=== PATIENT | female | born 1945 | race Caucasian/White ===

== ENCOUNTER 2016-10-12 14:01 | Emergency (ER) | payer OTHER ==
[2016-10-12 14:58] LABS: RED BLOOD COUNT 4.84 M/UL (4.00-5.10); WHITE BLOOD COUNT 4.2 K/UL (4.5-11.0)
[2016-10-12 15:21] LABS: BUN/CREATININE RATIO 19 (0-10)
== END 2016-10-12 17:30 | disposition home or self-care (01) ==
LOC: ER1 14:01
PROVIDERS: Emergency Medicine
DX: R55 Syncope and collapse (principal); R07.89 Other chest pain; R42 Dizziness and giddiness; R53.1 Weakness
CPT/HCPCS: 36415; 70450; 71010; 80053; 82550; 82553; 83874; 84484; 85025; 93005; 96361; 96374; 96375; 96376; 99285; J2270; J2405; J7030

== ENCOUNTER → 2017-01-06 | Outpatient (CLI) | payer OTHER | LOC: HEART 5 09:28 | DX: I20.9 Angina pectoris, unspecified (principal); R55 Syncope and collapse; R94.39 Abnormal result of other cardiovascular function study | CPT/HCPCS: 78452; A9502 ==

== ENCOUNTER → 2017-01-07 | Outpatient (CLI) | payer OTHER | LOC: RT 10:01 | DX: R55 Syncope and collapse (principal) ==

== ENCOUNTER → 2020-06-05 | Outpatient (CLI) | payer OTHER ==
[~2020-06-05] MED LIST: HYDROCODON-ACE1 EAC4 PO; MOBIC15 MG PO; OMNICEF 300 MG300 MG PO; PREDNISONE20 MG PO; ZOFRAN4 MG PO
== END ==
LOC: HEART 5 08:31
DX: I20.9 Angina pectoris, unspecified (principal); R94.39 Abnormal result of other cardiovascular function study
CPT/HCPCS: 78452; A9502; J2785